=== PATIENT | female | born 1955 | race African-American/Black ===

== ENCOUNTER 2017-01-10 18:20 | Inpatient (IN) | payer OTHER ==
[~2017-01-10] VITALS: Ht 167.6 cm; Wt 83.0 kg
--- NOTE | ~2017-01-10 | HC ---
[facility] [place] [address] CONSULTATION Name: BRUNILDARUDDY Room #: 418-P [facility] IN M.R.#: [id number] Admission: 01/10/17 Attend Phys: Ashwin Liang MD Discharge: Date of : 55 Report #: [id number] THIS REPORT FOR: //name// CC: Bri Liang CHIEF COMPLAINT: Back pain and leg pain following low back surgery. This 61-year-old female recently underwent outpatient low back surgery at another facility, I believe on January 08. I believe she was discharged either that same day or on the following day. Once she went home she apparently had increased discomfort and some sense of fever and so her son brought her to [facility] where she was admitted on January 10. Since then, she has had intermittent fevers, which have improved somewhat. She has had general pain at the low back and also some ongoing discomfort in both lower extremities. She has been able to eat a regular diet and has been up to a chair or with some limited ambulation, although with discomfort. At the time of my evaluation, she notes moderate generalized low back discomfort. She also notes some persistent leg pain. She states this is slightly worse on the right side than on the left and feels her symptoms are somewhat worse since surgery when compared with the immediate postoperative period. She has already had some imaging studies of the lumbar spine. An MRI scan was attempted, but was stopped as she was having increased symptoms of discomfort. That study did reveal satisfactory appearance of the thoracic region with some degenerative changes. In the lumbar region, her post-surgical changes were noted with edema and fluid collection at the lower lumbar region. No other significant soft tissue abnormalities were identified. The pedicle screws were noted with the right L4 pedicle screw penetrating through the pedicle into the neural foramina to some extent, possibly causing some neurologic impingement. She has already had cultures of the fluid drainage from the spine wound, those have only grown normal skin yi. She was initially febrile, but that seems to have improved. Her white count was also improved. At the time of my evaluation today, she is sitting up and eating a meal at the bedside. The back wound demonstrates no obvious redness or warmth. There is some induration and swelling. Although there has been some drainage previously, there is really not much drainage today at this point despite gentle pressure and manipulation over the wound. The appearance is certainly consistent with a recent surgical back wound, but does not have the appearance of gross purulence or marked infection. She demonstrates satisfactory movement of both lower extremities. She does note some vague dysesthesia in the right leg and she states she feels a bit weak; however, objective testing would suggest satisfactory dorsiflexion and plantar flexion strength without obvious significant neurologic deficit. In summary, I think this patient has a postoperative hematoma and seroma [address] [address] CONSULTATION Name: BRUNILDARUDDY Room #: 418-P [facility] IN M.R.#: [id number] Admission: 01/10/17 Attend Phys: Ashwin Liang MD Discharge: Date of : 55 Report #: [id number] involving her low back surgery. It is difficult to rule out deep wound infection, but at this point cultures and clinical findings would suggest this is not a significant infection. No other areas of infection have been identified. I would favor continued conservative management with antibiotic coverage and observation. If there is more significant progressive inflammation or evidence of infection, then a wound debridement and irrigation and closure over a new drain would be an acceptable option. I have asked the nursing staff and the patient to contact her treating surgeon, Dr. Draper who may either attend her here or make arrangements for transfer to a facility where he can continue with this postoperative management. In the meanwhile, I will be happy to follow along and help to manage her current situation. Although I am not anticipate the need for a repeat surgery, I think we will keep her n.p.o. past midnight tonight, so that we can reassess and make that judgment tomorrow. <ELECTRONICALLY SIGNED> By: Kingsley Javed MD 01/17/17 1101 1809 32 Kingsley Javed MD /nt
--- NOTE | ~2017-01-10 | HC ---
[facility] [place] [place] [address] CONSULTATION Name: RUDDY WORLEY Room #: 418-P ADM IN M.R.#: [id number] Admission: 01/10/17 Attend Phys: Ashwin Liang MD Discharge: Date of : 55 Report #: [id number] THIS REPORT FOR: //name// CC: Bri Liang REASON FOR CONSULTATION: I was asked to evaluate concerning postoperative fever. HISTORY OF PRESENT ILLNESS: The patient is a 61-year-old presents to the emergency room with fever, increased pain and some weakness in her right lower extremity following surgery earlier this week performed at [facility] by Dr. Lonnie Draper for lumbar disk disease. The patient states that she has titanium rods in place. She was discharged 48 hours after surgery and was at home. She was able to ambulate. Awoke yesterday with increased back pain associated with fever and chills. She has noticed that her pain was worse down her right leg. REVIEW OF SYSTEMS: Notes moderate amount of drainage from her back incision. She has had no headache, nausea, vomiting or diarrhea. Denies any dysuria. No rashes. ALLERGIES: PENICILLIN, although she does tolerate amoxicillin and cephalosporins. Also, abdominal pain with TYLENOL, allergic to LIDOCAINE, LISINOPRIL, PIROXICAM, PREGABALIN, OXYCONTIN, and MORPHINE. PAST MEDICAL HISTORY: Hypertension, lumbar disk disease, hyperlipidemia, tonsillectomy, carpal tunnel surgery, hysterectomy and tubal ligation. MEDICATIONS: As noted on her MAR. No current antibiotics. Did receive 2 days of an oral antibiotic for sinus drainage. The patient did not know the name of the medication. FAMILY HISTORY: Noncontributory. SOCIAL HISTORY: Smoker of cigarettes. Daily alcohol intake. PHYSICAL EXAMINATION: VITAL SIGNS: Maximum temperature was , currently afebrile and hemodynamically stable. GENERAL: The patient was in a moderate amount of pain during my evaluation. HEENT: Unremarkable. NECK: Supple, no adenopathy. SKIN: Unremarkable. LUNGS: Clear. HEART: without murmur. She did have intermittent loose cough during my evaluation. [facility] [address] [place] [address] CONSULTATION Name: RUDDY WORLEY Room #: 418-P [facility] IN M.R.#: [id number] Admission: 01/10/17 Attend Phys: Ashwin Liang MD Discharge: Date of : 55 Report #: [id number] ABDOMEN: Obese, soft, nontender, no hepatosplenomegaly or mass. BACK: Incision, had an incisional VAC dressing on. This was taken down. The incision was well approximated except for the upper portion had serous drainage. No fluctuance. Minimal erythema. EXTREMITIES: Unremarkable. Right lower extremity had some weakness in her right leg and foot compared to the left. Sensation intact. 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 The MRI scan of the lumbar spine was not able to be completed due to increased discomfort. Blood cultures are negative so far. Hemoglobin 9.5, WBCs 17.0, platelet count 286,000. Sodium 134, potassium 3.5, bicarbonate 27, and creatinine 0.9. CT scan of the chest, no evidence of pulmonary embolism or dissection. Mild patchy basilar atelectasis. Urinalysis was unremarkable. Lactate was 1.6. IMPRESSION: A 61-year-old with postoperative fever and increased lumbar spine pain. She has a moderate amount of serous drainage from her back unexpected given the extent of her surgical procedure. I would like to get some imaging of her spine to further delineate this. We will also need to see our operative note and discuss further with her surgeon. Pulmonary status seems stable. She may have some bronchitis giving the ongoing cough and sputum production. No evidence of intraabdominal infection or urinary tract infection. RECOMMENDATION: We will obtain cultures of blood and incisional drainage. Also, obtain a sputum culture. Placed on broad-spectrum antibiotic therapy. Further imaging of her spine if possible. We will discuss further with radiology. <ELECTRONICALLY SIGNED> By: Mayito Grace MD 01/14/17 1235 1412 [id number] Mayito Grace MD /nt
--- NOTE | ~2017-01-10 | EKG ---
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
[~2017-01-10 18:20] MED LIST: AMBIEN 10 MG TA10 MG PO; AMBIEN 5 MG TABL5 M1 PO; AMOXICILLIN 50500 MG PO; BIOTIN2500 MCG PO; CARAFATE 1 GM TA1 G1 PO; CELEXA40 MG PO; CLONIDINE0.1 PO; DOCUSATE SODIU100 MG PO; FLONASE 0.05%50 MCG NASAL; HYDROCHLOROTH12.5 MG PO; LYRICA 50 MG50 MG PO; LYRICA 75 MG CA75 MG PO; OXYCODONE HCL 55 MG PO; OXYCODONE HCL10 M1 PO; OXYCONTIN10 MG PO; PERCOCET PO; POTASSIUM20; PREMARIN0.45 MG PO; PRENATAL; PRILOSEC 20 MG20 MG PO; PROAIR HFA8.5 GM IH; PROCARDIA XL90 MG PO; TUMS PO
[2017-01-10 18:22] VITALS: BP 142/97
[2017-01-10 19:22] LABS: ABSOLUTE NEUTROPHILS 9.6 thou/uL (1.4-8.2); BASOPHILS 0.5 % (0.0-2.0); EOSINOPHILS 0.3 % (0.0-3.0); HEMATOCRIT 27.7 % (37.0-47.0); HEMOGLOBIN 9.1 gm/dL (12.0-15.0); LYMPHOCYTES 24.8 % (24.0-44.0); MCH 27.8 pg (26.0-34.0); MCV 84.4 fL (80.0-100.0); MONOCYTES 7.9 % (1.0-8.0); PLATELET COUNT 305 thou/uL (150-400); POLYS 66.5 % (36.0-66.0); RBC 3.28 mil/uL (4.20-5.00); RDW 14.1 % (10.5-14.5); WBC 14.4 thou/uL (4.0-11.0)
[2017-01-10 19:24] LABS: CALCIUM 8.8 mg/dL (8.5-10.1); CREATININE 0.9 mg/dL (0.6-1.0); MANUAL DIFF NO; POTASSIUM 3.9 mmol/L (3.5-5.1)
[2017-01-10 21:03] LABS: URINE BILIRUBIN 1+ (Negative); URINE BLOOD TRACE (Negative); URINE COLOR YELLOW; URINE GLUCOSE-RANDOM* NEGATIVE (Negative); URINE KETONES NEGATIVE (Negative); URINE LEUKOCYTES-REFLEX NEGATIVE (Negative); URINE PROTEIN (DIPSTICK) 2+ (Negative); URINE UROBILINOGEN 0.2 E.U./dl (0.2-1.0)
[2017-01-10 21:08] LABS: ICTOTEST (BILI CONFIRMATORY) Negative (Negative)
[2017-01-10 21:33] LABS: CASTS None Seen /LPF (None Seen); CRYSTALS None Seen /LPF (None Seen); SQUAMOUS 4-10 Moderate /LPF (0-3); URINE RBC 0-2 Rare /HPF (0-2); URINE WBC-REFLEX 0-5 Rare /HPF (0-5)
[2017-01-10 22:00] VITALS: BP 148/96
[2017-01-10 22:20] VITALS: BP 152/96
[2017-01-10 22:40] VITALS: BP 152/96
[2017-01-10 23:00] VITALS: BP 191/124
[2017-01-11] MEDS ORDERED: PROTONIX40 M1 PO (01:27)
[2017-01-11] MEDS ORDERED: ZANAFLEX4 MG PO (01:28)
[2017-01-11] MEDS ORDERED: ESTRADIOL 1 MG T1 M1 PO (01:29)
[2017-01-11 03:05] VITALS: BP 139/88
[2017-01-11 06:20] LABS: HEMATOCRIT 29.2 % (37.0-47.0); HEMOGLOBIN 9.5 gm/dL (12.0-15.0); MCH 27.9 pg (26.0-34.0); MCHC 32.7 g/dL (28.0-37.0); MCV 85.4 fL (80.0-100.0); RBC 3.41 mil/uL (4.20-5.00); RDW 14.4 % (10.5-14.5)
[2017-01-11 06:32] LABS: CALCIUM 8.9 mg/dL (8.5-10.1); CREATININE 0.9 mg/dL (0.6-1.0); POTASSIUM 3.5 mmol/L (3.5-5.1)
[2017-01-11 07:14] VITALS: BP 93/64
[2017-01-11 15:38] LABS: ALBUMIN 3.1 g/dL (3.4-5.0); DIRECT BILIRUBIN 0.2 mg/dL (<0.1-0.3); TOTAL BILIRUBIN 0.6 mg/dL (<0.1-1.0); TOTAL PROTEIN 6.9 g/dL (6.4-8.2)
[2017-01-11 17:18] VITALS: BP 110/69
[2017-01-11 19:18] VITALS: BP 104/57
[2017-01-12 03:20] VITALS: BP 89/68
[2017-01-12 07:35] VITALS: BP 108/75
[2017-01-12 16:17] VITALS: BP 99/46
[2017-01-12 19:19] VITALS: BP 120/75
[2017-01-13 03:00] LABS: MCH 28.9 pg (26.0-34.0); MCHC 33.9 g/dL (28.0-37.0); MCV 85.2 fL (80.0-100.0); RBC 2.46 mil/uL (4.20-5.00); RDW 14.2 % (10.5-14.5); WBC 12.9 thou/uL (4.0-11.0)
[2017-01-13 03:01] LABS: HEMOGLOBIN 7.1 gm/dL (12.0-15.0)
[2017-01-13 03:10] LABS: ALBUMIN 2.3 g/dL (3.4-5.0); CALCIUM 8.2 mg/dL (8.5-10.1); CREATININE 0.8 mg/dL (0.6-1.0); POTASSIUM 3.9 mmol/L (3.5-5.1); TOTAL BILIRUBIN 0.6 mg/dL (<0.1-1.0); TOTAL PROTEIN 6.1 g/dL (6.4-8.2)
[2017-01-13 03:40] VITALS: BP 111/63
[2017-01-13 08:03] VITALS: BP 167/98
[2017-01-13 16:22] VITALS: BP 89/59
[2017-01-13 20:00] VITALS: BP 104/69
[2017-01-14] MEDS ORDERED: SYMBICORT160 MCG/4. INH (02:20)
[2017-01-14 04:30] VITALS: BP 137/75
[2017-01-14 06:18] LABS: HEMATOCRIT 24.3 % (37.0-47.0); MCHC 32.8 g/dL (28.0-37.0); MCV 85.3 fL (80.0-100.0); RBC 2.85 mil/uL (4.20-5.00); RDW 14.1 % (10.5-14.5); WBC 8.8 thou/uL (4.0-11.0)
[2017-01-14 06:30] LABS: ALBUMIN 2.5 g/dL (3.4-5.0); CALCIUM 8.9 mg/dL (8.5-10.1); CREATININE 0.8 mg/dL (0.6-1.0); POTASSIUM 3.2 mmol/L (3.5-5.1); TOTAL BILIRUBIN 0.8 mg/dL (<0.1-1.0); TOTAL PROTEIN 6.9 g/dL (6.4-8.2)
[2017-01-14 08:00] VITALS: BP 89/62
[2017-01-14 16:16] VITALS: BP 122/78
[2017-01-14 19:14] VITALS: BP 118/78
[2017-01-15 03:15] VITALS: BP 122/74
[2017-01-15 07:20] VITALS: BP 102/69
[2017-01-15 14:45] VITALS: BP 133/79
[2017-01-15 18:44] VITALS: BP 176/93
[2017-01-15 19:21] VITALS: BP 152/83
[2017-01-16 03:22] VITALS: BP 124/71
[2017-01-16 07:16] VITALS: BP 122/85
[2017-01-16 16:25] VITALS: BP 165/107
[2017-01-16 19:02] VITALS: BP 155/92
[2017-01-17 02:58] VITALS: BP 151/84
[2017-01-17 07:22] VITALS: BP 145/98
[2017-01-17 15:03] VITALS: BP 136/85
[2017-01-17 19:19] VITALS: BP 141/81
[2017-01-18 03:00] VITALS: BP 103/70
[2017-01-18 06:10] LABS: ABSOLUTE NEUTROPHILS 7.9 thou/uL (1.4-8.2); BASOPHILS 0.6 % (0.0-2.0); EOSINOPHILS 3.1 % (0.0-3.0); HEMATOCRIT 25.5 % (37.0-47.0); HEMOGLOBIN 8.3 gm/dL (12.0-15.0); LYMPHOCYTES 25.4 % (24.0-44.0); MCH 27.5 pg (26.0-34.0); MCHC 32.6 g/dL (28.0-37.0); MCV 84.6 fL (80.0-100.0); MONOCYTES 9.4 % (1.0-8.0); PLATELET COUNT 600 thou/uL (150-400); POLYS 61.5 % (36.0-66.0); RBC 3.01 mil/uL (4.20-5.00); RDW 14.1 % (10.5-14.5); WBC 12.8 thou/uL (4.0-11.0)
[2017-01-18 06:21] LABS: CALCIUM 8.8 mg/dL (8.5-10.1); CREATININE 1.6 mg/dL (0.6-1.0)
[2017-01-18 06:23] LABS: MANUAL DIFF NO
[2017-01-18 06:28] LABS: POTASSIUM 2.9 mmol/L (3.5-5.1)
[2017-01-18 08:00] VITALS: BP 129/81
[2017-01-18] MEDS ORDERED: OXYCONTIN10 M1 PO (09:41)
[2017-01-18] MEDS ORDERED: OXYCODONE HCL 55 MG PO (09:42)
[2017-01-18] MEDS ORDERED: AMBIEN 5 MG TABL5 M1 PO (09:42)
[2017-01-18] MEDS ORDERED: CEFAZOLIN1 GM/50 M1 IV (14:49)
== END 2017-01-18 17:15 | DRG 871 ==
LOC: ER 18:20 → EROBS 21:29 → 4E 21:29
PROVIDERS: Emergency Medicine; Family Medicine; Hospitalist; Nurse Practitioner Family; Specialist
PROC: 02HV33Z Insertion of Infusion Device into Superior Vena Cava, Percutaneous Approach (ICD-10-PCS; principal; 2017-01-18)
DX: A41.9 Sepsis, unspecified organism (principal); E43 Unspecified severe protein-calorie malnutrition; E87.1 Hypo-osmolality and hyponatremia; G89.18 Other acute postprocedural pain; E78.5 Hyperlipidemia, unspecified; I50.9 Heart failure, unspecified; I11.0 Hypertensive heart disease with heart failure; R91.1 Solitary pulmonary nodule; Z68.29 Body mass index [BMI] 29.0-29.9, adult; Z98.51 Tubal ligation status; Z90.710 Acquired absence of both cervix and uterus; Z79.899 Other long term (current) drug therapy; Z88.6 Allergy status to analgesic agent; Z88.0 Allergy status to penicillin; Z88.8 Allergy status to other drugs, medicaments and biological substances
CPT/HCPCS: 10084; 27000